=== PATIENT | female | born 1975 | race Caucasian/White ===

== ENCOUNTER 2019-04-23 11:11 | Emergency (ER) | payer BC, OTHER ==
[2019-04-23 11:44] VITALS: RESP 19; TEMP 98.4
--- NOTE | 2019-04-23 13:19 | ED ---
General Adult HPI - General Chief complaint: Extremity Problem,Nontraumatic Stated complaint: Both Legs Swelling, Kidney Pain Time Seen by Provider: 04/23/19 12:49 Source: patient, RN notes reviewed Mode of arrival: ambulatory Limitations: no limitations - History of Present Illness Initial comments: Patient is a pleasant 43-year-old female presenting to the emergency Department with bilateral leg swelling. Onset of symptoms was around a month ago. Patient states she does had her weight checked and she is up 30 pounds. Patient denies any dyspnea. Patient does have some mild lower back discomfort. No history of similar symptoms previous. Patient has an developing some discoloration of her fingers and toes periodically that she has done research on an intravenous is 3 not syndrome. Patient states she does have a previous diagnosis of rheumatoid arthritis. Patient states she does have some discomfort of both of her legs. No chest pain or dyspnea. No fever. No cough. - Related Data Home Medications Medication Instructions Recorded Confirmed Cyanocobalamin (Vitamin B-12) 1,000 mg PO DAILY 04/23/19 04/23/19 [Vitamin B-12] Multivitamins, Thera [Multivitamin 1 tab PO DAILY 04/23/19 04/23/19 (formulary)] Previous Rx's Medication Instructions Recorded Magnesium Oxide 400 mg PO DAILY #30 tablet 04/23/19 Allergies Allergy/AdvReac Type Severity Reaction Status Date / Time Sulfa (Sulfonamide Allergy Unknown Verified 04/23/19 13:46 Antibiotics) Childhood sulfamethoxazole Allergy Unknown Verified 04/23/19 13:46 [From Bactrim] trimethoprim [From Bactrim] Allergy Unknown Verified 04/23/19 13:46 Review of Systems ROS Statement: Those systems with pertinent positive or pertinent negative responses have been documented in the HPI. ROS Other: All systems not noted in ROS Statement are negative. Constitutional: Denies: fever Eyes: Denies: eye pain ENT: Denies: ear pain Respiratory: Denies: cough, dyspnea Cardiovascular: Denies: chest pain Endocrine: Denies: fatigue Gastrointestinal: Denies: abdominal pain Genitourinary: Denies: dysuria Musculoskeletal: Reports: as per HPI, back pain Skin: Denies: rash Neurological: Denies: weakness Past Medical History Past Medical History: Seizure Disorder History of Any Multi-Drug Resistant Organisms: None Reported Past Surgical History: No Surgical Hx Reported Past Psychological History: No Psychological Hx Reported Smoking Status: Current every day smoker Past Alcohol Use History: None Reported Past Drug Use History: None Reported General Exam Limitations: no limitations General appearance: alert, in no apparent distress Head exam: Present: normocephalic Eye exam: Present: normal appearance, PERRL ENT exam: Present: normal oropharynx Neck exam: Present: normal inspection Respiratory exam: Present: normal lung sounds bilaterally Cardiovascular Exam: Present: regular rate, normal rhythm Expanded Peripheral pulses: 2+: Radial (R), Radial (L), Posterior Tibialis (R), Posterior Tibialis (L), Dorsalis Pedis (R), Dorsalis Pedis (L) GI/Abdominal exam: Present: soft. Absent: tenderness Extremities exam: Present: pedal edema (+2 bilateral), calf tenderness Back exam: Present: tenderness (Mild tenderness left lower lumbar) Neurological exam: Present: alert Psychiatric exam: Present: normal affect, normal mood Skin exam: Present: normal color, other (No discoloration of the fingers.). Absent: rash Course Vital Signs 04/23/19 04/23/19 11:42 17:06 Temperature 98.4 F Pulse Rate 116 H 87 Respiratory 19 19 Rate Blood Pressure 123/76 124/70 O2 Sat by Pulse 98 97 Oximetry - Reevaluation(s) Reevaluation #1: 04/23/19 13:19 Patient does have a photograph of her fingers with heel discoloration of her distal fingers consistent with Raynaud's. 04/23/19 16:33 Case was discussed with Dr. Elliott who will come evaluate patient. He feels patient will likely be able to be discharged. Patient still complains of some back discomfort and computed tomography scan will be ordered. 04/23/19 17:18 Patient was seen by Dr. Elliott. Plans for discharge with follow-up with Dr. Williams Gaming's computed tomography scan is reported as negative. This will be endorsed to Dr. Sanchez For CT report and probable discharge. EKG Findings - EKG Comments: EKG Findings:: Normal sinus rhythm 95. DC 120. QRS 84. QT 350. QTC 449. Normal axis. Normal QRS. No acute ST change. Medical Decision Making - Lab Data Result diagrams: 04/23/19 14:17 04/23/19 14:17 Lab Results 04/23/19 04/23/19 04/23/19 Range/Units 14:17 14:17 14:17 WBC 6.1 (3.8-10.6) k/uL RBC 4.38 (3.80-5.40) m/uL Hgb 12.3 (11.4-16.0) gm/dL Hct 38.8 (34.0-46.0) % MCV 88.5 (80.0-100.0) fL MCH 28.0 (25.0-35.0) pg MCHC 31.7 (31.0-37.0) g/dL RDW 13.8 (11.5-15.5) % Plt Count 335 (150-450) k/uL Neutrophils % 58 % Lymphocytes % 27 % Monocytes % 7 % Eosinophils % 3 % Basophils % 3 % Neutrophils # 3.5 (1.3-7.7) k/uL Lymphocytes # 1.7 (1.0-4.8) k/uL Monocytes # 0.4 (0-1.0) k/uL Eosinophils # 0.2 (0-0.7) k/uL Basophils # 0.2 (0-0.2) k/uL PT (9.0-12.0) sec INR (<1.2) APTT (22.0-30.0) sec Sodium 137 (137-145) mmol/L Potassium 4.6 (3.5-5.1) mmol/L Chloride 103 (98-107) mmol/L Carbon Dioxide 27 (22-30) mmol/L Anion Gap 7 mmol/L BUN 11 (7-17) mg/dL Creatinine 0.76 (0.52-1.04) mg/dL Est GFR (CKD-EPI)AfAm >90 (>60 ml/min/1.73 sqM) Est GFR (CKD-EPI)NonAf >90 (>60 ml/min/1.73 sqM) Glucose 93 (74-99) mg/dL Calcium 8.8 (8.4-10.2) mg/dL Magnesium 1.4 L (1.6-2.3) mg/dL Total Bilirubin 0.4 (0.2-1.3) mg/dL AST 135 H (14-36) U/L ALT 109 H (4-34) U/L Alkaline Phosphatase 94 (38-126) U/L Creatine Kinase 154 H (30-135) U/L Troponin I (0.000-0.034) ng/mL NT-Pro-B Natriuret Pep pg/mL Total Protein 7.0 (6.3-8.2) g/dL Albumin 3.8 (3.5-5.0) g/dL Urine Color Urine Appearance (Clear) Urine pH (5.0-8.0) Ur Specific [place] (1.001-1.035) Urine Protein (Negative) Urine Glucose (UA) (Negative) Urine Ketones (Negative) Urine Blood (Negative) Urine Nitrite (Negative) Urine Bilirubin (Negative) Urine Urobilinogen (<2.0) mg/dL Ur Leukocyte Esterase (Negative) Urine RBC (0-5) /hpf Urine WBC (0-5) /hpf Ur Squamous Epith Cells (0-4) /hpf Urine Bacteria (None) /hpf Hyaline Casts (0-2) /lpf Urine Mucus (None) /hpf Urine HCG, Qual Not Detected (Not Detectd) 04/23/19 04/23/19 04/23/19 Range/Units 14:17 14:17 14:17 WBC (3.8-10.6) k/uL RBC (3.80-5.40) m/uL Hgb (11.4-16.0) gm/dL Hct (34.0-46.0) % MCV (80.0-100.0) fL MCH (25.0-35.0) pg MCHC (31.0-37.0) g/dL RDW (11.5-15.5) % Plt Count (150-450) k/uL Neutrophils % % Lymphocytes % % Monocytes % % Eosinophils % % Basophils % % Neutrophils # (1.3-7.7) k/uL Lymphocytes # (1.0-4.8) k/uL Monocytes # (0-1.0) k/uL Eosinophils # (0-0.7) k/uL Basophils # (0-0.2) k/uL PT 9.5 (9.0-12.0) sec INR 0.9 (<1.2) APTT 23.7 (22.0-30.0) sec Sodium (137-145) mmol/L Potassium (3.5-5.1) mmol/L Chloride (98-107) mmol/L Carbon Dioxide (22-30) mmol/L Anion Gap mmol/L BUN (7-17) mg/dL Creatinine (0.52-1.04) mg/dL Est GFR (CKD-EPI)AfAm (>60 ml/min/1.73 sqM) Est GFR (CKD-EPI)NonAf (>60 ml/min/1.73 sqM) Glucose (74-99) mg/dL Calcium (8.4-10.2) mg/dL Magnesium (1.6-2.3) mg/dL Total Bilirubin (0.2-1.3) mg/dL AST (14-36) U/L ALT (4-34) U/L Alkaline Phosphatase (38-126) U/L Creatine Kinase (30-135) U/L Troponin I <0.012 (0.000-0.034) ng/mL NT-Pro-B Natriuret Pep 199 pg/mL Total Protein (6.3-8.2) g/dL Albumin (3.5-5.0) g/dL Urine Color Urine Appearance (Clear) Urine pH (5.0-8.0) Ur Specific [place] (1.001-1.035) Urine Protein (Negative) Urine Glucose (UA) (Negative) Urine Ketones (Negative) Urine Blood (Negative) Urine Nitrite (Negative) Urine Bilirubin (Negative) Urine Urobilinogen (<2.0) mg/dL Ur Leukocyte Esterase (Negative) Urine RBC (0-5) /hpf Urine WBC (0-5) /hpf Ur Squamous Epith Cells (0-4) /hpf Urine Bacteria (None) /hpf Hyaline Casts (0-2) /lpf Urine Mucus (None) /hpf Urine HCG, Qual (Not Detectd) 04/23/19 Range/Units 14:17 WBC (3.8-10.6) k/uL RBC (3.80-5.40) m/uL Hgb (11.4-16.0) gm/dL Hct (34.0-46.0) % MCV (80.0-100.0) fL MCH (25.0-35.0) pg MCHC (31.0-37.0) g/dL RDW (11.5-15.5) % Plt Count (150-450) k/uL Neutrophils % % Lymphocytes % % Monocytes % % Eosinophils % % Basophils % % Neutrophils # (1.3-7.7) k/uL Lymphocytes # (1.0-4.8) k/uL Monocytes # (0-1.0) k/uL Eosinophils # (0-0.7) k/uL Basophils # (0-0.2) k/uL PT (9.0-12.0) sec INR (<1.2) APTT (22.0-30.0) sec Sodium (137-145) mmol/L Potassium (3.5-5.1) mmol/L Chloride (98-107) mmol/L Carbon Dioxide (22-30) mmol/L Anion Gap mmol/L BUN (7-17) mg/dL Creatinine (0.52-1.04) mg/dL Est GFR (CKD-EPI)AfAm (>60 ml/min/1.73 sqM) Est GFR (CKD-EPI)NonAf (>60 ml/min/1.73 sqM) Glucose (74-99) mg/dL Calcium (8.4-10.2) mg/dL Magnesium (1.6-2.3) mg/dL Total Bilirubin (0.2-1.3) mg/dL AST (14-36) U/L ALT (4-34) U/L Alkaline Phosphatase (38-126) U/L Creatine Kinase (30-135) U/L Troponin I (0.000-0.034) ng/mL NT-Pro-B Natriuret Pep pg/mL Total Protein (6.3-8.2) g/dL Albumin (3.5-5.0) g/dL Urine Color Light Yellow Urine Appearance Cloudy H (Clear) Urine pH 5.0 (5.0-8.0) Ur Specific [place] 1.008 (1.001-1.035) Urine Protein Negative (Negative) Urine Glucose (UA) Negative (Negative) Urine Ketones Negative (Negative) Urine Blood Negative (Negative) Urine Nitrite Negative (Negative) Urine Bilirubin Negative (Negative) Urine Urobilinogen <2.0 (<2.0) mg/dL Ur Leukocyte Esterase Large H (Negative) Urine RBC 9 H (0-5) /hpf Urine WBC 34 H (0-5) /hpf Ur Squamous Epith Cells 17 H (0-4) /hpf Urine Bacteria Rare H (None) /hpf Hyaline Casts 10 H (0-2) /lpf Urine Mucus Rare H (None) /hpf Urine HCG, Qual (Not Detectd) Disposition Clinical Impression: Leg swelling, Weight gain, Back pain Disposition: HOME SELF-CARE Instructions (If sedation given, give patient instructions): Leg Edema (ED), Back Pain (ED) Additional Instructions: Please follow-up with Dr. Gaming and Dr. Kramer in the next couple days for recheck. Return for increased pain, waking, swelling, worsening symptoms or other concerns. Prescriptions: Magnesium Oxide 400 mg PO DAILY #30 tablet Is patient prescribed a controlled substance at d/c from ED?: No Referrals: Jermaine Gaming MD [STAFF PHYSICIAN] - 1-2 days Cindi Kramer MD [STAFF PHYSICIAN] - 1-2 days
[2019-04-23] MEDS ORDERED: ACETAMINOPHEN TAB 500 MG TAB PO STA (14:21)
[2019-04-23 14:37] LABS: Basophils # (A) 0.2 k/uL (0-0.2); Basophils % (A) 3 %; Eosinophils # (A) 0.2 k/uL (0-0.7); Eosinophils % (A) 3 %; HCT 38.8 % (34.0-46.0); HGB 12.3 gm/dL (11.4-16.0); Lymphocytes # (A) 1.7 k/uL (1.0-4.8); Lymphocytes % (A) 27 %; MCHC 31.7 g/dL (31.0-37.0); MCV 88.5 fL (80.0-100.0); Mean Platelet Volume 7.1; Monocytes # (A) 0.4 k/uL (0-1.0); Monocytes % (A) 7 %; Neutrophils # (A) 3.5 k/uL (1.3-7.7); Neutrophils % (A) 58 %; Platelet Count 335 k/uL (150-450); RBC 4.38 m/uL (3.80-5.40); RDW 13.8 % (11.5-15.5); WBC 6.1 k/uL (3.8-10.6)
[2019-04-23 14:40] LABS: Appearance,Urine Cloudy (Clear); Bacteria,Urine Rare /hpf; Bilirubin,Urine Negative (Negative); Blood,Urine Negative (Negative); Color,Urine Light Yellow; Glucose,Urine (UA) Negative (Negative); Hyaline Casts,Urine 10 /lpf (0-2); Ketones,Urine Negative (Negative); Leukocyte Esterase,Urine Large (Negative); Mucus,Urine Rare /hpf; Nitrite,Urine Negative (Negative); Protein,Urine Negative (Negative); RBC,Urine 9 /hpf (0-5); Specific Gravity,Urine 1.008 (1.001-1.035); Squamous Epithelial Cell,Urine 17 /hpf (0-4); Urobilinogen,Urine <2.0 mg/dL (<2.0); WBC,Urine 34 /hpf (0-5)
[2019-04-23 14:47] LABS: ALT 109 U/L (4-34); AST 135 U/L (14-36); African American GFR (CKD) >90 (>60 ml/min/1.73 sqM); Albumin 3.8 g/dL (3.5-5.0); Alkaline Phosphatase 94 U/L (38-126); Anion Gap 7 mmol/L; Blood Urea Nitrogen 11 mg/dL (7-17); Calcium 8.8 mg/dL (8.4-10.2); Carbon Dioxide 27 mmol/L (22-30); Chloride 103 mmol/L (98-107); Creatine Kinase 154 U/L (30-135); Glucose 93 mg/dL (74-99); Magnesium 1.4 mg/dL (1.6-2.3); Non-African American GFR(CKD) >90 (>60 ml/min/1.73 sqM); Potassium 4.6 mmol/L (3.5-5.1); Sodium 137 mmol/L (137-145); Total Bilirubin 0.4 mg/dL (0.2-1.3)
[2019-04-23 14:48] LABS: INR 0.9 (<1.2); Partial Thromboplastin Time 23.7 sec (22.0-30.0); Prothrombin Time 9.5 sec (9.0-12.0)
--- NOTE | 2019-04-23 14:51 | XR ---
EXAMINATION TYPE: XR chest 2V DATE OF EXAM: 04/23/2019 COMPARISON: NONE HISTORY: Difficulty breathing, lower leg swelling and shortness of breath TECHNIQUE: Frontal and lateral views of the chest are obtained. FINDINGS: There is no focal air space opacity, pleural effusion, or pneumothorax seen. The cardiac silhouette size is within normal limits. The osseous structures are intact. IMPRESSION: No acute cardiopulmonary process.
--- NOTE | 2019-04-23 15:56 | US ---
EXAMINATION TYPE: US venous doppler duplex LE DATE OF EXAM: 04/23/2019 1:16 PM COMPARISON: NONE CLINICAL HISTORY: swelling. SIDE PERFORMED: Bilateral TECHNIQUE: The lower extremity deep venous system is examined utilizing real time linear array sonog vee with graded compression, doppler sonography and color-flow sonography. VESSELS IMAGED: External Iliac Vein (EIV) Common Femoral Vein Deep Femoral Vein Greater Saphenous Vein * Femoral Vein Popliteal Vein Small Saphenous Vein * Proximal Calf Veins (* superficial vessels) There is normal flow, compressibility, vascular waveforms. Right Leg: Negative for DVT Left Leg: Negative for DVT IMPRESSION: No evident deep venous thrombosis at or above the knees. Follow-up as indicated.
[2019-04-23] MEDS ORDERED: MORPHINE SULFATE 4 MG/ML SYRINGE IV STA (16:34)
[2019-04-23] MEDS ORDERED: diphenhydrAMINE 50 MG/ML 1 ML VIAL IVP STA (17:16)
[2019-04-23] MEDS ORDERED: FUROSEMIDE 20 MG TAB PO STA (17:22)
[2019-04-23] MEDS: MAGNESIUM SULFATE-D5W PMX 1 GM in DEXTROSE/WATER 1 100ML.BAG IVPB SCH ×2 (17:35→19:03)
--- NOTE | 2019-04-23 17:57 | CT ---
EXAMINATION TYPE: CT abdomen pelvis w con DATE OF EXAM: 04/23/2019 COMPARISON: None HISTORY: Left flank pain. CT DLP: 1359.8 mGycm Automated exposure control for dose reduction was used. CONTRAST: Performed with IV Contrast, patient injected with 100 mL of Isovue 300. There is minimal subsegmental atelectasis at the lung bases. There is no pleural effusion. Heart size is fairly normal. Liver spleen stomach pancreas gallbladder appear normal. Bile ducts are not dilated. There is no adre nal mass. Kidneys have normal size and contour. There is satisfactory contrast opacification. There i s no hydronephrosis. Bladder distends smoothly. There is no inguinal hernia. Uterus is anteverted. Th ere is no free fluid in the pelvis. There is mild constipation. Appendix appears normal. There is 2 c m cyst on the right ovary. Lumbar spine is intact. Bony pelvis is intact. There is no mesenteric vince a. There is no ascites or free air. IMPRESSION: Normal appendix. Right ovarian cyst. No renal stone or obstruction. I do not see a cause for left fla nk pain. Mild constipation.
[2019-04-23 18:25] VITALS: BP 137/84; PULSE 84
[2019-04-23] MEDS ORDERED: MAGNESIUM OXIDE 400 MG TAB PO STA ×2 (18:43)
--- NOTE | 2019-04-23 19:34 | P.CONS ---
History of Present Illness - Reason for Consult For possible admission - History of Present Illness 51-year-old female presents to ER with the comments of bilateral swelling when I evaluated that is now much of swelling, patient was comparing of her significant weight gain. About 30 pounds. Patient doesn't have any JVD doesn't have any elevated proBNP clinically patient doesn't seem to be in heart failure patient doesn't have any proteinuria any and urine analysis patient has a contaminated urine sample patient doesn't have any UTI-like symptoms. Although patient has multiple other significant issues going on patient was comparing of tenderness when she touches her thigh muscles and if she is also complaining of back pain. Patient doesn't have any radicular symptoms. 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 Patient did show me the pictures of her hands which turned pale and purple, consistent with regards phenomenon. Patient denied any other symp toms of scleroderma. Patient may have an autoimmune disease. Patient does have elevation of liver enzymes. I'm repeating liver enzymes again tomorrow if patient can use to have elevated liver enzymes are upward trend of liver enzymes patient need to be worked up for that starting with the an ultrasound of the gallbladder and hepatitis panel. Patient definitely need to follow with [facility] in need to be worked up for autoimmune disorders but nothing much else can be offered for her as an inpatient because of which are after counseling and after discussing with the the ER physician I recommended that patient follow-up with a [facility] as an outpatient asked her to make an appointment tomorrow with [facility] and will be discharged from ER with repeat complains of metabolic profile for tomorrow to with and results to be faxed to PCPs office to me. She doesn't have a PCP and patient will be referred to a primary care physician here. Review of Systems Further review of systems is negative. Those mentioned above. Past Medical History Past Medical History: Seizure Disorder History of Any Multi-Drug Resistant Organisms: None Reported Past Surgical History: No Surgical Hx Reported Past Psychological History: No Psychological Hx Reported Smoking Status: Current every day smoker Past Alcohol Use History: None Reported Past Drug Use History: None Reported Medications and Allergies Home Medications Medication Instructions Recorded Confirmed Type Cyanocobalamin (Vitamin B-12) 1,000 mg PO DAILY 04/23/19 04/23/19 History [Vitamin B-12] Magnesium Oxide 400 mg PO DAILY #30 tablet 04/23/19 Rx Multivitamins, Thera [Multivitamin 1 tab PO DAILY 04/23/19 04/23/19 History (formulary)] Allergies Allergy/AdvReac Type Severity Reaction Status Date / Time Sulfa (Sulfonamide Allergy Unknown Verified 04/23/19 13:46 Antibiotics) Childhood sulfamethoxazole Allergy Unknown Verified 04/23/19 13:46 [From Bactrim] trimethoprim [From Bactrim] Allergy Unknown Verified 04/23/19 13:46 Physical Exam Vitals: Vital Signs Temp Pulse Resp BP Pulse Ox 04/23/19 18:24 84 19 137/84 100 04/23/19 17:06 87 19 124/70 97 04/23/19 11:42 98.4 F 116 H 19 123/76 98 Intake and Output 04/23/19 04/23/19 04/23/19 06:59 14:59 22:59 Other: Weight 94.937 kg PHYSICAL EXAMINATION: GENERAL: The patient is alert and oriented x3, not in any acute distress. Well developed, well nourished. HEENT: Pupils are round and equally reacting to light. EOMI. No scleral icterus. No conjunctival pallor. Normocephalic, atraumatic. No pharyngeal erythema. No thyromegaly. CARDIOVASCULAR: S1 and S2 present. No murmurs, rubs, or gallops. PULMONARY: Chest is clear to auscultation, no wheezing or crackles. ABDOMEN: Soft, nontender, nondistended, normoactive bowel sounds. No palpable organomegaly. MUSCULOSKELETAL: No joint swelling or deformity. EXTREMITIES: No cyanosis, clubbing, mild nonpitting pedal edema bilaterally. And now. NEUROLOGICAL: Gross neurological examination did not reveal any focal deficits. SKIN: No rashes. Results CBC & Chem 7: 04/23/19 14:17 04/23/19 14:17 Labs: Abnormal Lab Results - Last 24 Hours (Table) 04/23/19 04/23/19 Range/Units 14:17 14:17 Magnesium 1.4 L (1.6-2.3) mg/dL AST 135 H (14-36) U/L ALT 109 H (4-34) U/L Creatine Kinase 154 H (30-135) U/L Urine Appearance Cloudy H (Clear) Ur Leukocyte Esterase Large H (Negative) Urine RBC 9 H (0-5) /hpf Urine WBC 34 H (0-5) /hpf Ur Squamous Epith Cells 17 H (0-4) /hpf Urine Bacteria Rare H (None) /hpf Hyaline Casts 10 H (0-2) /lpf Urine Mucus Rare H (None) /hpf Assessment and Plan Plan: -Bilateral pedal edema: No evidence of a heart, liver or kidney failure. Patient may have some venous stasis further workup as an outpatient, Doppler of the bilateral lower extremity did not reveal any significant pathology -Tenderness in muscles of his legs and CPKs within normal limits patient had rheumatoid factor elevation in the past patient was asked to follow Dr. Kramer as an outpatient -mild elevation of liver enzymes for which I'm repeating liver enzymes tomorrow if they continue to be elevated will order hepatitis panel -Back pain without any radiculopathy, computed tomography scan of the abdomen and pelvis did not show any significant abnormality in the lumbar spine. 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
[2019-04-23] MEDS ORDERED: ACET/COD 300 MG/30 MG STARTER PACK 6 TAB BTL PO STA (20:16)
[2019-04-24 13:24] LABS: C. trachomatis,PCR Negative (Neg,Equiv); Chlamydia trachomatis Source Urine
[2019-04-24 13:25] LABS: N. gonorrhoeae,PCR Negative (Neg,Equiv); Neisseria Source Urine
== END 2019-04-23 20:23 | disposition home or self-care (01) ==
LOC: EC 11:11
DX: M79.89 Other specified soft tissue disorders (principal); M54.9 Dorsalgia, unspecified; R63.5 Abnormal weight gain; N23 Unspecified renal colic; R23.8 Other skin changes; F17.200 Nicotine dependence, unspecified, uncomplicated; Z88.2 Allergy status to sulfonamides
CPT/HCPCS: 36415; 93005; 83880; 80053; 82550; 83735; 84484; 85025; 85610; 85730; 81001; 81025; 87491; 87591; 71046; 93970; 74177; 99285; 96365; 96375 ×2; J2270; J1200; J3475; Q9967

== ENCOUNTER → 2019-05-13 | Outpatient (CLI) | payer SELFPAY ==
[2019-05-14 00:29] LABS: African American GFR (CKD) 106.1 (60.0-200.0); Albumin 3.9 g/dL (3.80-4.90); Albumin/Globulin Ratio 1.77 (1.60-3.17); Anion Gap 6.9 mmol/L (4.00-12.00); Calcium 8.7 mg/dL (8.7-10.3); Carbon Dioxide 26.1 mmol/L (21.6-31.8); Globulin 2.2 g/dL (1.6-3.3); Non-African American GFR(CKD) 91.6 (60.0-200.0); Potassium 4.3 mmol/L (3.5-5.5); Total Bilirubin 0.1 mg/dL (0.2-1.2); Total Protein 6.1 g/dL (6.2-8.2)
== END | disposition home or self-care (01) ==
LOC: LABWHC1 13:48
PROVIDERS: ATTEND Internal Medicine
DX: M79.89 Other specified soft tissue disorders (principal)
CPT/HCPCS: 36415; 80053